=== PATIENT | male | born 2005 | race African-American/Black ===

== ENCOUNTER 2024-09-14 13:29 | Emergency (ER) | payer SELFPAY ==
[2024-09-14] MEDS: Cyclobenzaprine 10 MG Tab PO ONE (14:50)
[2024-09-14] MEDS: Sodium Chloride 0.9% 10 ML Syringe FLUSH PRN (14:50)
[2024-09-14] MEDS: Ketorolac 30 MG/ML SDV IVPUSH ONE (14:51)
[2024-09-14 14:57] LABS: BASOPHILS PERCENT AUTO 0.3 % (0.0-1.0); HEMATOCRIT 47.3 % (42.0-52.0); HEMOGLOBIN 16.7 gm/dl (14.0-18.0); IMMATURE GRAN ABSOLUTE AUTO 0.03 K/mm3 (0.00-0.05); IMMATURE GRAN PERCENT AUTO 0.5 % (0.0-0.4); LYMPHOCYTES ABSOLUTE AUTO 0.3 K/mm3 (1.0-4.8); LYMPHOCYTES PERCENT AUTO 5.2 % (24.0-44.0); MEAN CORPUSCULAR HEMOGLOBIN 30.1 pg (28.0-32.0); MEAN CORPUSCULAR HGB CONC 35.3 g/dl (32.0-36.0); MEAN CORPUSCULAR VOLUME 85.2 fl (83.0-99.0); MEAN PLATELET VOLUME 8.8 fl (9.4-12.4); MONOCYTES PERCENT AUTO 15.1 % (0.0-8.0); NEUTROPHILS PERCENT AUTO 78.9 % (41.0-71.0); PLATELET COUNT,PLT 204 K/mm3 (150-400); RED BLOOD CELL COUNT 5.55 M/mm3 (4.52-5.90); WHITE BLOOD CELL COUNT,WBC 6.31 K/mm3 (3.9-11.3)
[2024-09-14 15:26] LABS: A/G RATIO 1.1 (1-2); ALBUMIN 4.2 g/dl (3.4-5.0); ANION GAP 16.6 (5-15); BILIRUBIN TOTAL 1.2 mg/dL (0.2-1.0); BUN/CREATININE RATIO 7.3 (14-18); CALCIUM 9.5 mg/dL (8.5-10.1); CREATININE 1.1 mg/dL (0.7-1.3); EST CRCL DRUG DOSING (CG) 121.06 mL/min; POTASSIUM,K 3.6 mEq/L (3.5-5.1)
[2024-09-14] MEDS: Sodium Chloride 0.9% 1,000 ML IV STA (16:01)
== END 2024-09-14 17:10 | disposition home or self-care (01) ==
LOC: JD.ED 13:29
DX: J10.1 Influenza due to other identified influenza virus with other respiratory manifestations (principal); M26.629 Arthralgia of temporomandibular joint, unspecified side; J45.909 Unspecified asthma, uncomplicated; F17.210 Nicotine dependence, cigarettes, uncomplicated; Z79.899 Other long term (current) drug therapy
CPT/HCPCS: 36415; 80053; 85025; 87428; 96361; 96374; 99284; A9270; J1885; J7030